=== PATIENT | male | born 1960 | race African-American/Black ===

== ENCOUNTER 2017-03-06 10:01 | Emergency (ER) | payer OTHER ==
[~2017-03-06] VITALS: Ht 182.9 cm; Wt 77.1 kg
--- NOTE | 2017-03-06 10:36 | ED GI/GU/ABDOMINAL COMPLAINT ---
History of Present Illness General Chief Complaint: General Adult Stated Complaint: GROIN PAIN Source: patient, family Exam Limitations: no limitations Vital Signs & Intake/Output Vital Signs & Intake/Output Vital Signs Date Time Temp Pulse Resp B/P B/P Pulse O2 O2 Flow FiO2 Mean Ox Delivery Rate 03/06 1424 97.1 60 16 143/83 99 Room Air 03/06 1014 97.4 65 18 148/92 96 Room Air Allergies Coded Allergies: No Known Allergies (03/06/17) Reconcile Medications No Known Home Medications Triage Note: 57 Y/O MALE STATING "I AM HERE FOR A CHECK UP. I HAVE HAD GAS PAINS FOR A LONG TIME". STATES "GAS PAINS" COME AND GO; DENIES AT PRESENT. ALSO REPORTS NOTICING BLOOD AFTER URINATING YESTERDAY. DENIES N/V/D. AFEBRILE. Triage Nurses Notes Reviewed? yes HPI: Patient presents with complaints of intermittent pressure sensation in his left lower quadrant and suprapubic area. The pain seems to worsen when he does not eat but then goes away when he does eat. Patient thinks that there might of been blood in his urine 2 days ago. There is no penile discharge. Patient states the pain comes and goes and sometimes lasts an hour or 2 before going away. There is no radiation. At its worst the pain is 3 out of 10 and it is currently 0 out of 10. Patient denies any testicular pain. Past History Travel History Traveled to [place] past 21 day No Medical History Any Pertinent Medical History? none Neurological: NONE EENT: NONE Cardiovascular: NONE Respiratory: NONE Gastrointestinal: NONE Hepatic: NONE Renal: NONE Musculoskeletal: NONE Psychiatric: NONE Endocrine: NONE Blood Disorders: NONE Cancer(s): NONE BELTING CUTTER/Reproductive: NONE Surgical History Surgical History: non-contributory Psychosocial History What is your primary language German Tobacco Use: Current Daily Use Daily Tobacco Use Amount/Type: =< 4 Cigarettes daily ETOH Use: denies use Illicit Drug Use: denies illicit drug use Family History Hx Contributory? No Review of Systems Review of Systems Constitutional: Reports: no symptoms. EENTM: Reports: no symptoms. Respiratory: Reports: no symptoms. Cardiovascular: Reports: no symptoms. GI: Reports: see HPI, abdominal pain. Genitourinary: Reports: see HPI, hematuria. Musculoskeletal: Reports: no symptoms. Skin: Reports: no symptoms. Neurological/Psychological: Reports: no symptoms. Hematologic/Endocrine: Reports: no symptoms. Immunologic/Allergic: Reports: no symptoms. All Other Systems: Reviewed and Negative Physical Exam Physical Exam General Appearance: well developed/nourished, alert, awake Head: atraumatic, normal appearance Eyes: Bilateral: PERRL, EOMI. Ears, Nose, Throat, Mouth: hearing grossly normal, moist mucous membrane Neck: normal inspection, supple, full range of motion Respiratory: normal breath sounds, chest non-tender, no respiratory distress, lungs clear Cardiovascular: regular rate/rhythm, normal peripheral pulses Gastrointestinal: normal bowel sounds, soft, non-tender, no organomegaly Back: normal inspection, normal range of motion, NO CVA TENDERNESS Extremities: normal range of motion Neurologic/Psych: no motor/sensory deficits, awake, alert, oriented x 3, normal gait, normal mood/affect Skin: intact, normal color, warm/dry Core Measures ACS in differential dx? No Severe Sepsis Present: No Septic Shock Present: No Progress Differential Diagnosis: ureterolithiasis, urinary retention, urethritis, UTI/ pyelo, INTESTINAL SPASM, BACK PAIN Plan of Care: Orders Procedure Date/time Status COMPREHENSIVE METABOLIC PANEL 03/06 1036 Complete CBC WITHOUT DIFFERENTIAL 03/06 1036 Complete URINALYSIS 03/06 1031 Complete Laboratory Tests 03/06/17 1040: Anion Gap 9, Estimated GFR > 60, BUN/Creatinine Ratio 11.3, Glucose 102 H, Calcium 9.5, Total Bilirubin 0.6, AST 39, ALT 71, Alkaline Phosphatase 98, Total Protein 7.4, Albumin 4.4, Globulin 3.0, Albumin/Globulin Ratio 1.5, CBC w Diff NO MAN DIFF REQ, RBC 5.01, MCV 86.4, MCH 28.3, RDW 14.0, MPV 8.6, Gran % 61.0, Lymphocytes % 24.5, Monocytes % 5.4, Eosinophils % 8.8 H, Basophils % 0.3, Absolute Granulocytes 5.2, Absolute Lymphocytes 2.1, Absolute Monocytes 0.5, Absolute Eosinophils 0.8, Absolute Basophils 0, PUBS MCHC 32.8 L 03/06/17 1034: Urine Color YEL, Urine Clarity CLEAR, Urine pH 7.0, Ur Specific [place] 1.020, Urine Protein NEG, Urine Ketones NEG, Urine Nitrite NEG, Urine Bilirubin NEG, Urine Urobilinogen 0.2, Ur Leukocyte Esterase NEG, Ur Microscopic EXAM NOT REQUIRED, Urine Hemoglobin NEG, Urine Glucose NEG Diagnostic Imaging: Viewed by Me: CT Scan. Discussed w/RAD: CT Scan. Radiology Impression: PATIENT: ARABELLA CONNOLLY PRESENT AGE: 57 PATIENT ACCOUNT NO: [id number] : 61 LOCATION: [facility] ORDERING PHYSICIAN: ANTONI CHAPA MD SERVICE DATE: 03/06/17 EXAM TYPE: CAT - CT ABD & PELVIS W/ & W/O IV CO EXAMINATION: CT ABDOMEN AND PELVIS WITHOUT AND WITH CONTRAST CLINICAL INFORMATION: Questionable renal mass. COMPARISON: Renal ultrasound 03/06/2017. TECHNIQUE: Multidetector volumetric imaging was performed through the abdomen prior to IV contrast. The abdomen and pelvis were then reexamined after the administration of 94 mL Optiray 320 intravenous contrast. Sagittal and coronal reformatted images were obtained on the technologist's workstation. DLP: 392 mGy-cm FINDINGS: LUNG BASES: The visualized lung bases are unremarkable. PRECONTRAST: Incidental note is made of a subcentimeter calcified granuloma within the right lung base, which is of no clinical significance. No renal, ureteral or bladder stones are identified. POSTCONTRAST: LIVER, GALLBLADDER, AND BILIARY TREE: The liver is normal in size, shape, and attenuation. No focal hepatic lesion or biliary ductal dilatation is present. The gallbladder is unremarkable with no evidence of radiopaque gallstones, gallbladder wall thickening, or obvious pericholecystic inflammatory changes. PANCREAS: Unremarkable. SPLEEN: Unremarkable. ADRENAL GLANDS: Slight nodularity of the right adrenal gland, with a 0.7 x 0.8 cm nodule visualized arising from the lateral limb of the right adrenal gland. This nodule is too small to further characterize on this exam. The left adrenal gland is within normal limits. KIDNEYS AND URETERS: Evaluation of the bilateral kidneys and renal collecting systems is notable for a lobular fluid attenuating lesion within the mid to lower pole of the left kidney measuring approximately 3.7 x 5.4 x 5.5 cm in transverse, AP and craniocaudal dimensions respectively (series 602, image 61). There is no significant enhancement of this lesion on postcontrast imaging. There is the suggestion of internal septae within this lesion although these septae were better visualized on a similarly dated renal ultrasound. There is no visible peripheral or internal enhancing nodularity. No additional renal masses are identified. No renal or ureteral stones are identified and there is no hydroureteronephrosis of either kidney or renal collecting system. BLADDER: Unremarkable. GASTROINTESTINAL TRACT: Normal anatomic orientation of the stomach relative to the duodenum. Normal caliber of abdominal and pelvic bowel loops, without evidence of obstruction or ileus. No circumferential bowel wall thickening with surrounding inflammatory changes to suggest an underlying infectious or inflammatory enterocolitis. Normal-appearing appendix within the right lower quadrant of the abdomen. No organizing intra- abdominal fluid collections or free intraperitoneal air. ABDOMINAL WALL: Small fat-containing bilateral inguinal hernias. LYMPH NODES: No significant abdominal or pelvic adenopathy. VASCULAR: Patent abdominal vasculature. Normal course and caliber of the abdominal aorta and its branching vessels, without aneurysmal dilatation. PELVIC VISCERA: The prostate gland measures 4.3 x 4.7 cm. OSSEOUS STRUCTURES: No acute osseous abnormality. No destructive osseous lesions. Moderate degenerative changes at the lumbosacral junction with posterior disc protrusion. IMPRESSION: A 3.7 x 5.4 x 5.5 cm nonenhancing, lobular cystic mass within the mid to lower pole of the left kidney, corresponding to a recently described complex cystic lesion within the left kidney on a similarly dated renal ultrasound. Previously noted internal septations within this lesion are not well seen on this exam and were better visualized on the similarly dated renal ultrasound. There is no internal enhancing nodularity. This cystic lesion is favored to represent a Bosniak type 2F lesion, for which continued follow-up is recommended. If clinically desired, a nonemergent, outpatient multiphase contrast-enhanced MRI of the abdomen may be obtained for further characterization of the internal architecture of this lesion. DICTATED BY: DANY LARSON MD DATE/TIME DICTATED:03/06/171406 STRING WINDING MACHINE OPERATOR:PAULA DATE/TIME TRANSCRIBED:03/06/171406 CONFIDENTIAL, DO NOT COPY WITHOUT APPROPRIATE AUTHORIZATION. <Electronically signed in Other Vendor System> SIGNED BY: DANY LARSON MD 03/06/17 1432, PATIENT: ARABELLA CONNOLLY PRESENT AGE: 57 PATIENT ACCOUNT NO: [id number] : 61 LOCATION: [facility] ORDERING PHYSICIAN: ANTONI CHAPA MD SERVICE DATE: -1111 EXAM TYPE: US - US-RENAL/KIDNEY EXAMINATION: US RETROPERITONEAL COMPLETE (RENAL) CLINICAL INFORMATION: Left flank pain. Presumptive diagnosis: Kidney stone COMPARISON: None TECHNIQUE: Real-time imaging of the kidneys and bladder. FINDINGS: RIGHT KIDNEY: 10.3 x 4.6 x 4.9 cm (SAG x AP x TRV). The kidney is normal in size, contour, and echogenicity. Renal cortical thickness is normal. No calculi or focal parenchymal lesions. No hydronephrosis. LEFT KIDNEY: 12 x 5.6 x 6.1 cm (SAG x AP x TRV). The kidney is normal in size, contour, and echogenicity. Renal cortical thickness is normal. A complex cystic lesion at the interpolar region measures 5.6 x 3.4 x 5.1 cm and contains multiple internal septations. No significant internal blood flow seen on color Doppler. No hydronephrosis or nephrolithiasis. BLADDER: Well-distended and normal. Bilateral ureteral jets are demonstrated. Prostate gland is enlarged, measuring 4.8 x 4.4 x 4.5 cm (50 cm). IMPRESSION: 1. Complex 5.6 cm cystic lesion the left kidney. Although this may represent a complex renal cyst. Cystic neoplasm is also on the differential. Recommend further evaluation with a renal mass protocol MRI or CT, both with and without contrast. 2. No nephrolithiasis or hydronephrosis. 3. Prostatomegaly DICTATED BY: DELFINA ZEE MD DATE/TIME DICTATED:03/06/171213 STRING WINDING MACHINE OPERATOR:PAULA DATE/TIME TRANSCRIBED:03/06/171213 CONFIDENTIAL, DO NOT COPY WITHOUT APPROPRIATE AUTHORIZATION. <Electronically signed in Other Vendor System> SIGNED BY: DELFINA ZEE MD 03/06/17 1223 Initial ED EKG: none Departure Departure Disposition: HOME OR SELF CARE Condition: Stable Clinical Impression Primary Impression: Renal cyst Referrals: PATIENT HAS NO PRIMARY CARE DR (PCP/Family) CINDY FLOYD MD Additional Instructions: Follow-up with Dr. Floyd about kidney. Somebody from [facility] practice will call you within the week to set up an appointment. Return for any concerns. Departure Forms: Customer Survey General Discharge Information Prescriptions: Current Visit Scripts No Known Home Medications
[2017-03-06 10:53] LABS: ABSOLUTE BASOPHIL COUNT 0 /CUMM (0.0-0.2); ABSOLUTE EOSINOPHIL COUNT 0.8 /CUMM (0.0-0.7); ABSOLUTE GRANULOCYTE CT 5.2 /CUMM (1.4-6.5); ABSOLUTE LYMPH COUNT 2.1 /CUMM (1.2-3.4); ABSOLUTE MONOCYTE COUNT 0.5 /CUMM (0.10-0.60); BASOPHIL % 0.3 % (0.0-2.0); EOSINOPHIL % 8.8 % (0-5); HEMATOCRIT 43.3 % (42-52); MEAN CORPUSCULAR HGB 28.3 PG (27.0-31.0); MEAN CORPUSCULAR HGB CONC 32.8 G/DL (33.0-37.0); MEAN CORPUSCULAR VOLUME 86.4 FL (80.0-94.0); MEAN PLATELET VOLUME 8.6 FL (7.4-10.4); PLATELET COUNT 131 /CUMM (130-400); RED BLOOD CELL CT 5.01 /CUMM (4.70-6.10); WHITE BLOOD CELL COUNT 8.6 /CUMM (4.8-10.8)
--- NOTE | 2017-03-06 12:23 | ULTRASOUND REPORT ---
EXAMINATION: US RETROPERITONEAL COMPLETE (RENAL) CLINICAL INFORMATION: Left flank pain. Presumptive diagnosis: Kidney stone COMPARISON: None TECHNIQUE: Real-time imaging of the kidneys and bladder. FINDINGS: RIGHT KIDNEY: 10.3 x 4.6 x 4.9 cm (SAG x AP x TRV). The kidney is normal in size, contour, and echogenicity. Renal cortical thickness is normal. No calculi or focal parenchymal lesions. No hydronephrosis. LEFT KIDNEY: 12 x 5.6 x 6.1 cm (SAG x AP x TRV). The kidney is normal in size, contour, and echogenicity. Renal cortical thickness is normal. A complex cystic lesion at the interpolar region measures 5.6 x 3.4 x 5.1 cm and contains multiple internal septations. No significant internal blood flow seen on color Doppler. No hydronephrosis or nephrolithiasis. BLADDER: Well-distended and normal. Bilateral ureteral jets are demonstrated. Prostate gland is enlarged, measuring 4.8 x 4.4 x 4.5 cm (50 cm). IMPRESSION: 1. Complex 5.6 cm cystic lesion the left kidney. Although this may represent a complex renal cyst. Cystic neoplasm is also on the differential. Recommend further evaluation with a renal mass protocol MRI or CT, both with and without contrast. 2. No nephrolithiasis or hydronephrosis. 3. Prostatomegaly
--- NOTE | 2017-03-06 14:32 | CT SCAN REPORT ---
EXAMINATION: CT ABDOMEN AND PELVIS WITHOUT AND WITH CONTRAST CLINICAL INFORMATION: Questionable renal mass. COMPARISON: Renal ultrasound 03/06/2017. TECHNIQUE: Multidetector volumetric imaging was performed through the abdomen prior to IV contrast. The abdomen and pelvis were then reexamined after the administration of 94 mL Optiray 320 intravenous contrast. Sagittal and coronal reformatted images were obtained on the technologist's workstation. DLP: 392 mGy-cm FINDINGS: LUNG BASES: The visualized lung bases are unremarkable. PRECONTRAST: Incidental note is made of a subcentimeter calcified granuloma within the right lung base, which is of no clinical significance. No renal, ureteral or bladder stones are identified. POSTCONTRAST: LIVER, GALLBLADDER, AND BILIARY TREE: The liver is normal in size, shape, and attenuation. No focal hepatic lesion or biliary ductal dilatation is present. The gallbladder is unremarkable with no evidence of radiopaque gallstones, gallbladder wall thickening, or obvious pericholecystic inflammatory changes. PANCREAS: Unremarkable. SPLEEN: Unremarkable. ADRENAL GLANDS: Slight nodularity of the right adrenal gland, with a 0.7 x 0.8 cm nodule visualized arising from the lateral limb of the right adrenal gland. This nodule is too small to further characterize on this exam. The left adrenal gland is within normal limits. KIDNEYS AND URETERS: Evaluation of the bilateral kidneys and renal collecting systems is notable for a lobular fluid attenuating lesion within the mid to lower pole of the left kidney measuring approximately 3.7 x 5.4 x 5.5 cm in transverse, AP and craniocaudal dimensions respectively (series 602, image 61). There is no significant enhancement of this lesion on postcontrast imaging. There is the suggestion of internal septae within this lesion although these septae were better visualized on a similarly dated renal ultrasound. There is no visible peripheral or internal enhancing nodularity. No additional renal masses are identified. No renal or ureteral stones are identified and there is no hydroureteronephrosis of either kidney or renal collecting system. BLADDER: Unremarkable. GASTROINTESTINAL TRACT: Normal anatomic orientation of the stomach relative to the duodenum. Normal caliber of abdominal and pelvic bowel loops, without evidence of obstruction or ileus. No circumferential bowel wall thickening with surrounding inflammatory changes to suggest an underlying infectious or inflammatory enterocolitis. Normal-appearing appendix within the right lower quadrant of the abdomen. No organizing intra-abdominal fluid collections or free intraperitoneal air. ABDOMINAL WALL: Small fat-containing bilateral inguinal hernias. LYMPH NODES: No significant abdominal or pelvic adenopathy. VASCULAR: Patent abdominal vasculature. Normal course and caliber of the abdominal aorta and its branching vessels, without aneurysmal dilatation. PELVIC VISCERA: The prostate gland measures 4.3 x 4.7 cm. OSSEOUS STRUCTURES: No acute osseous abnormality. No destructive osseous lesions. Moderate degenerative changes at the lumbosacral junction with posterior disc protrusion. IMPRESSION: A 3.7 x 5.4 x 5.5 cm nonenhancing, lobular cystic mass within the mid to lower pole of the left kidney, corresponding to a recently described complex cystic lesion within the left kidney on a similarly dated renal ultrasound. Previously noted internal septations within this lesion are not well seen on this exam and were better visualized on the similarly dated renal ultrasound. There is no internal enhancing nodularity. This cystic lesion is favored to represent a Bosniak type 2F lesion, for which continued follow-up is recommended. If clinically desired, a nonemergent, outpatient multiphase contrast-enhanced MRI of the abdomen may be obtained for further characterization of the internal architecture of this lesion.
== END 2017-03-06 16:03 ==
LOC: ERH 10:01
PROVIDERS: Emergency Medicine
DX: N28.1 Cyst of kidney, acquired (principal)
CPT/HCPCS: 74178; 76775; 81003